=== PATIENT | female | born 1985 | race Caucasian/White ===

== ENCOUNTER 2017-12-31 20:19 | Emergency (ER) | payer SELFPAY ==
[2017-12-31] MEDS ORDERED: Sterile Water 10 ML ONE (21:05)
[2017-12-31] MEDS ORDERED: cefTRIAXone\\ROCEPHIN 1 GM VIAL ONE (21:06)
== END 2017-12-31 21:35 | disposition home or self-care (01) ==
LOC: MADERS 20:19
DX: L02.01 Cutaneous abscess of face (principal); L03.211 Cellulitis of face; F17.210 Nicotine dependence, cigarettes, uncomplicated
CPT/HCPCS: 96372; 99406; A4216; J0696

== ENCOUNTER 2018-07-25 19:31 | Emergency (ER) | payer SELFPAY ==
[2018-07-25] MEDS ORDERED: Clindamycin 150 MG CAP ONE (19:55)
[2018-07-25] MEDS ORDERED: Lidocaine 1% 20 ML MDV ONE (19:55)
[2018-07-25] MEDS ORDERED: cefTRIAXone\\ROCEPHIN 1 GM VIAL ONE (19:55)
--- NOTE | 2018-07-25 20:15 | RAD ---
Exam: XR Elbow Rt 4 View STANDARD HISTORY: Right elbow pain COMPARISON: None FINDINGS: There is subcutaneous soft tissue swelling seen about the elbow greater anteriorly. There is a focus of gas seen in the lateral subcutaneous soft tissues at the level of the antecubital fossa. No joint effusion is appreciated. There is prominence of soft tissues posterior to the olecranon process of the right elbow. No acute fracture, dislocation, or other acute osseous abnormality is identified. No osseous destruct ion is seen. IMPRESSION: 1. Subcutaneous soft tissue swelling about the elbow. Findings are greater anteriorly, and there is a lso subcutaneous emphysema. Findings may be related to cellulitis. Focus of subcutaneous gas could be related to soft tissue wound, but gas related to gas-forming organism is a possibility. 2. No acute osseous abnormality right elbow.
[2018-07-25] MEDS ORDERED: Sodium Chloride 0.9% 1,000 ML ONE (21:07)
[2018-07-25 21:14] LABS: #Basophils 0.1 thou/uL (0.0-0.2); #Eosinphils 0.1 thou/uL (0.0-0.7); #Lymphocytes 1.9 thou/uL (1.20-3.40); #Monocytes 0.8 thou/uL (0.11-0.59); #Neutrophils 6.6 thou/uL (1.40-6.50); %Basophils 0.5 % (0.0-1.0); %Eosinophils 0.8 % (0.0-10.0); %Lymphocytes 19.8 % (21.0-51.0); %Monocytes 8.7 % (0.0-10.0); %Neutrophils 70.2 % (42.0-75.0); Hemoglobin 13.2 g/dL (12.0-16.0); Mean Corpuscular HGB CONC 33.9 g/dL (32.0-36.0); Mean Corpuscular Hemoglobin 34.7 pg (27.0-31.0); Mean Corpuscular Volume 102.3 fL (78.0-98.0); Mean Platelet Volume 5.5 fL (7.4-10.4); Platelet Count 278 thou/uL (130-400); RBC Distribution Width 11.4 % (11.5-14.5); Red Blood Cell (RBC) Count 3.82 mill/uL (4.20-5.40); White Blood Cell (WBC) Count 9.4 thou/uL (4.8-10.8)
[2018-07-25 21:15] LABS: ALT (SGPT) 109 U/L (8-55); AST (SGOT) 32 U/L (5-34); Albumin 3.9 g/dL (3.5-5.0); Alkaline Phosphatase 75 U/L (40-150); Anion Gap 16 mmol/L (10-20); Anisocytosis MODERATE=16-30 cells (100X) (0-5/hpf); BUN (Urea Nitrogen) 16 mg/dL (7.0-18.7); Bilirubin, Total 0.2 mg/dL (0.2-1.2); Calc. Creatinine Clearance 0 mL/min (70-130); Calcium 9.1 mg/dL (7.8-10.44); Carbon Dioxide 23 mmol/L (22-29); Chloride 105 mmol/L (98-107); Estimated GFR-MDRD 83; Globulin 3.2 g/dL (2.4-3.5); Glucose 84 mg/dL (70-105); Macrocytosis MODERATE=16-30 cells (100X) (0-5/hpf); Potassium 4.8 mmol/L (3.5-5.1); Protein, Total 7.1 g/dL (6.0-8.3); Sodium 139 mmol/L (136-145)
[2018-07-25] MEDS ORDERED: Vancomycin HCl 500 MG VIAL ONE ×2 (21:28→21:29)
[2018-07-25] MEDS ORDERED: Clindamycin/D5W 600 mg/50 ml Premix Bag ONE (21:28)
[2018-07-25] MEDS ORDERED: Sodium Chloride 0.9% 100 ML ONE (21:30)
[2018-07-25] MEDS ORDERED: Sodium Chloride 0.9% 250 ML 250 ML ONE (21:30)
--- NOTE | 2018-07-25 22:08 | CT ---
EXAM: CT Upper Ext Rt WO Con PROVIDED CLINICAL HISTORY: Right elbow pain. Subcutaneous soft tissue swelling. COMPARISON: Radiographs right elbow obtained on this date. FINDINGS: No fracture or dislocation is seen involving the right elbow. Subcutaneous edema is seen about the elbow predominantly posteriorly. There is subcutaneous edema and emphysema seen in the anterior and lateral subcutaneous soft tissues at the level of the antecubital fossa. Findings could be related to focal infection in this region. There is no fluid col lection seen to suggest an abscess. No significant joint effusion is seen at the elbow. IMPRESSION: 1. Subcutaneous edema about the elbow greater posteriorly with subcutaneous gas and edema seen in the anterolateral subcutaneous soft tissues at the level of the antecubital fossa. Findings could be related to infection with the subcutaneous gas related to gas-forming organism versus versus site of injury. Clinical correlation recommended. 2. No acute osseous abnormality.
[2018-07-25 22:20] LABS: Bilirubin Negative (Negative); Blood, Urine Negative (Negative); Clarity Slightly Cloudy (Clear); Glucose, Urine (Dipstick) Negative (Negative); Leukocyte Negative (Negative); Nitrite Negative (Negative); Protein, Urine (Dipstick) Trace mg/dL (Neg-Trace); Specific Gravity, Urine 1.025 (1.005-1.030)
[2018-07-25 22:31] LABS: Amphetamine Detected (NotDetected); Barbiturates Screen Not Detected (NotDetected); Benzodiazepine Screen Not Detected (NotDetected); Cocaine Metabolite Screen Not Detected (NotDetected); Medtox Control Line Valid? VALID (VALID); Methadone Not Detected (NotDetected); Methamphetamine Detected (NotDetected); Opiate Screen Not Detected (NotDetected); Oxycodone Screen Not Detected (NotDetected); Phencyclidine (PCP) Not Detected (NotDetected); THC/Cannabinoid Screen Detected (NotDetected); Tricyclic Screen Not Detected (NotDetected)
== END 2018-07-26 00:04 | disposition short-term general hospital (02) ==
LOC: MADERS 19:31
DX: M72.6 Necrotizing fasciitis (principal); F17.210 Nicotine dependence, cigarettes, uncomplicated; Z87.442 Personal history of urinary calculi
CPT/HCPCS: 36415; 80053; 80306; 81003; 83605; 85025; 96361; 96365; 96366; 96368; 96372; J0696; J2001; J3370; J3490; J7050